=== PATIENT | female | born 1965 | race Caucasian/White ===

== ENCOUNTER 2020-09-02 09:53 | Day surgery (SDC) | payer SELFPAY ==
[~2020-09-02] VITALS: Ht 157.5 cm; Wt 56.0 kg
[2020-09-02] MEDS ORDERED: CEFAZOLIN PMX 1GM/50ML 50 ML ONE (10:49)
[2020-09-02] MEDS ORDERED: CEFAZOLIN PMX 1GM/50ML 50 ML IV ONE (11:00)
[2020-09-02] MEDS ORDERED: SODIUM CHLORIDE 0.9% 1,000 ML IV SCH (11:00)
[2020-09-02 11:02] VITALS: BP 109/58
[2020-09-02] MEDS ORDERED: PLEASE ENTER ALLERGIES MC SCH (11:30)
[2020-09-02] MEDS ORDERED: LIDOCAINE 1%, 10ML ONE (12:18)
[2020-09-02] MEDS ORDERED: MIDAZOLAM 1 MG/ML, 5ML ONE (12:38)
[2020-09-02] MEDS ORDERED: NALOXONE 1 MG/ML, 2ML ONE (12:38)
[2020-09-02] MEDS ORDERED: FENTANYL PF 100 MCG/2ML ONE (12:38)
[2020-09-02] MEDS ORDERED: FLUMAZENIL 0.1 MG/1 ML, 5ML ONE (12:38)
== END 2020-09-02 14:45 | disposition home or self-care (01) ==
LOC: OUT 09:53 → EDSTATUS 12:00 → OUT 14:45
PROVIDERS: ATTEND Urology
DX: N31.9 Neuromuscular dysfunction of bladder, unspecified (principal); Z79.899 Other long term (current) drug therapy; Z87.440 Personal history of urinary (tract) infections; Z88.5 Allergy status to narcotic agent
CPT/HCPCS: 51102; 76942; 77002; 99156; 99157; C1725; C1769; J0690; J2250; J3010; J7030; 75989; J2310